=== PATIENT | female | born 1995 | race Caucasian/White ===

== ENCOUNTER 2024-01-01 14:52 | Outpatient (CLI) | payer OTHER, SELFPAY ==
--- NOTE | ~2024-01-01 | XR_ITS ---
XR shoulder RT min 2V 01/01/2024 15:25 INDICATION: Right shoulder pain PROCEDURE: 4 views right shoulder COMPARISON: No prior studies for comparison. FINDINGS: Fracture, dislocation or subluxation is not identified. The soft tissues appear within norm al limits. No foreign bodies are identified. IMPRESSION: 1: NO ACUTE BONE OR JOINT ABNORMALITY IDENTIFIED. Reviewed, dictated and finalized at location L.
--- NOTE | ~2024-01-01 | XR_ITS ---
EXAMINATION:XR cervical spine 4-5V DATE: 01/01/2024 15:25 INDICATION: Neck pain TECHNIQUE: AP, lateral, lateral swimmers and odontoid views of the cervical spine are provided. COMPARISON: None FINDINGS: There are 2 mm of retrolisthesis of C5 on C6. The odontoid process is intact. No fracture i s identified. Vertebral body heights and disk spaces are normal. Prevertebral soft tissues are normal . IMPRESSION: 1. Mild cervical spondylosis without acute findings. Reviewed, dictated and finalized at location F.
== END 2024-01-01 14:53 ==
LOC: MICIMG 14:54
PROVIDERS: PCP Family Medicine; Visit Provider Physician Assistant
DX: M43.02 Spondylolysis, cervical region (principal); M25.511 Pain in right shoulder
CPT/HCPCS: 72050; 73030